=== PATIENT | male | born 1975 ===

== ENCOUNTER 2024-09-25 14:11 | Outpatient (CLI) | payer OTHER ==
[2024-09-26] MEDS ORDERED: METFORMIN HCL500 M3 PO (07:50)
[2024-09-26] MEDS ORDERED: [UNRECOGNIZED DRUG - OTHER] PO (07:50)
[2024-09-26] MEDS ORDERED: ZESTRIL2.5 MG PO (07:50)
[2024-09-26] MEDS ORDERED: JARDIANCE10 MG PO (07:50)
[2024-09-26] MEDS ORDERED: EZALLOR SPRINKL10 MG PO (07:51)
== END 2024-09-25 14:12 | disposition home or self-care (01) ==
LOC: RAD 14:11
PROVIDERS: ATTEND Surgery
DX: D12.5 Benign neoplasm of sigmoid colon (principal); D37.5 Neoplasm of uncertain behavior of rectum; R59.0 Localized enlarged lymph nodes

== ENCOUNTER 2024-09-26 07:24 | Inpatient (IN) | payer OTHER ==
[~2024-09-26] VITALS: Ht 61 cm; Wt 89.8 kg
[2024-09-26] MEDS ORDERED: JARDIANCE10 MG PO (07:50)
[2024-09-26] MEDS ORDERED: [UNRECOGNIZED DRUG - OTHER] PO (07:50)
[2024-09-26] MEDS ORDERED: METFORMIN HCL500 M3 PO (07:50)
[2024-09-26] MEDS ORDERED: ZESTRIL2.5 MG PO (07:50)
[2024-09-26] MEDS ORDERED: EZALLOR SPRINKL10 MG PO (07:51)
[2024-09-26 08:06] LABS: URINE APPEARANCE Clear; URINE BILIRRUBIN Negative (NEGATIVE); URINE BLOOD Negative; URINE COLOR Yellow; URINE KETONE Negative (NEGATIVE); URINE LEUKOCYTE Negative; URINE NITRATE Negative; URINE PROTEIN Negative (NEGATIVE); URINE UROBILINOGEN 0.2 E.U./dl
[2024-09-26 08:11] LABS: BASO % 0.8 % (0.1-1.2); EOS # 0.21 (0.04-0.54); EOS % 4.4 % (0.7-7.0); LYMPH # 1.91 (1.18-3.74); LYMPH % 39.8 % (19.3-53.1); MEAN PLATELET VOLUME 8.80 fl (9.4-12.4); MONO # 0.34 (0.24-0.82); MONO % 7.1 % (4.7-12.5); NEUT # 2.29 (1.56-6.13); NEUT % 47.7 % (34.0-71.1); RED CELL DISTRIBUTION WIDTH 13.4 % (11.6-14.4)
[2024-09-26 08:27] LABS: URINE BACTERIA 2.4 uL (0.0-1933); URINE CAST 0.00 uL (0.0-1.40); URINE EPITHELIAL CELLS 0.1 uL (0.0-38.8); URINE GLUCOSE >=1000 MG/DL (NEGATIVE); URINE RBC 0.5 uL (0.0-20.8); URINE WBC 1.2 uL (0.0-23.2)
[2024-09-26 08:39] LABS: INR 0.98
[2024-09-26 09:45] LABS: ALT/SGPT 25.0 U/L (12-78); AST/SGOT 15.0 U/L (15-37); BILIRUBIN TOTAL 0.63 mg/dL (0.3-1.2); BUN CREA RATIO 20.0 (7.0-25.0); CREATININE SERUM 0.93 mg/dL (0.70-1.30); GFR 86.0; GLOBULINA 2.9 G/DL (2.4-3.5); GLUCOSE FASTING 123.0 mg/dL (65-100); OSMOLALITY SERUM 289.0 MOSM/KG (275-295)
[2024-09-30 13:14] LABS: RH NEGATIVE
[2024-10-01] MEDS ORDERED: LIDOCAINE HCL 1%/EPINEPHRINE 20ML VIAL IJ ONE (08:30)
[2024-10-01] MEDS ORDERED: CEFTRIAXONE SODIUM 2,000 MG VIAL IV ONE (08:30)
[2024-10-01] MEDS ORDERED: POVIDONE-IODINE 118 ML BOTT TOP ONE (08:30)
[2024-10-01] MEDS ORDERED: BUPIVACAINE HCL 30 ML VIAL IJ ONE (08:30)
[2024-10-01] MEDS ORDERED: METRONIDAZOLE/SODIUM CHLORIDE 500 MG/100 ML PIGGYBACK IV ONE (08:30)
[2024-10-01] MEDS ORDERED: MORPHINE SULFATE 4 MG/ML VIAL IV ONE ×2 (09:40→10:10)
[2024-10-01] MEDS ORDERED: DEXTROSE 50 % IN WATER 0.5 G/ML VIAL IV PRN ×2 (10:15→13:15)
[2024-10-01] MEDS ORDERED: MORPHINE SULFATE 4 MG/ML CARTRIDGE IV PRN (10:15)
[2024-10-01] MEDS ORDERED: ONDANSETRON HCL 2 MG/ML VIAL IV PRN (10:15)
[2024-10-01] MEDS ORDERED: OxyCODONE HCL 5 MG TABLET (ROXICODONE) PO PRN (10:15)
[2024-10-01] MEDS ORDERED: RINGERS SOLUTION,LACTATED 1,000 ML IV SCH (10:15)
[2024-10-01 11:37] LABS: BASO % 0.4 % (0.1-1.2); EOS # 0.03 (0.04-0.54); EOS % 0.3 % (0.7-7.0); LYMPH # 0.72 (1.18-3.74); LYMPH % 7.3 % (19.3-53.1); MEAN PLATELET VOLUME 8.90 fl (9.4-12.4); MONO # 0.38 (0.24-0.82); MONO % 3.9 % (4.7-12.5); NEUT # 8.60 (1.56-6.13); NEUT % 87.7 % (34.0-71.1); RED CELL DISTRIBUTION WIDTH 12.8 % (11.6-14.4)
[2024-10-01 12:33] LABS: BUN CREA RATIO 11.0 (7.0-25.0); CREATININE SERUM 1.05 mg/dL (0.70-1.30); GFR 74.76; GLUCOSE FASTING 184.0 mg/dL (65-100); OSMOLALITY SERUM 284.0 MOSM/KG (275-295)
[2024-10-01] MEDS ORDERED: ENALAPRILAT DIHYDRATE 1.25 MG/ML VIAL IV PRN (13:15)
[2024-10-01] MEDS ORDERED: INSULIN LISPRO 1,000 UNIT/10 ML UNITS SUBCUTANEO PRN (13:15)
[2024-10-01] MEDS ORDERED: MAGNESIUM SULFATE IN WATER 50 ML IV NR (13:15)
[2024-10-01] MEDS ORDERED: ACETAMINOPHEN 500 MG GEL..CAP PO SCH (14:00)
[2024-10-01] MEDS ORDERED: GABAPENTIN 300 MG CAPSULE PO SCH (17:00)
[2024-10-01] MEDS ORDERED: POLYETHYLENE GLYCOL 3350 17 GM BLIST.PACK PO SCH (17:00)
[2024-10-01 19:04] VITALS: BP 115/72; O2SAT 95
[2024-10-01] MEDS ORDERED: FAMOTIDINE/PF 20 MG/2 ML VIAL IV PUSH SCH (21:00)
[2024-10-02 00:30] VITALS: BP 100/64; O2SAT 100
[2024-10-02 05:34] LABS: BASO % 0.3 % (0.1-1.2); EOS # 0.05 (0.04-0.54); EOS % 0.8 % (0.7-7.0); LYMPH # 1.59 (1.18-3.74); LYMPH % 23.9 % (19.3-53.1); MEAN PLATELET VOLUME 8.90 fl (9.4-12.4); MONO # 0.53 (0.24-0.82); MONO % 8.0 % (4.7-12.5); NEUT # 4.45 (1.56-6.13); NEUT % 66.8 % (34.0-71.1); RED CELL DISTRIBUTION WIDTH 13.1 % (11.6-14.4)
[2024-10-02 05:50] LABS: BUN CREA RATIO 11.0 (7.0-25.0); CREATININE SERUM 0.85 mg/dL (0.70-1.30); GFR 95.41; GLUCOSE FASTING 117.0 mg/dL (65-100); OSMOLALITY SERUM 281.0 MOSM/KG (275-295)
[2024-10-02] MEDS ORDERED: LISINOPRIL 2.5 MG TABLET PO SCH (09:00)
[2024-10-02 09:33] VITALS: BP 108/68; O2SAT 96
[2024-10-02] MEDS ORDERED: SIMETHICONE 125 MG CAPSULE PO STA (13:19)
[2024-10-02] MEDS ORDERED: HYOSCYAMINE SULFATE 0.125 MG TAB.SUBL SL PRN (13:30)
[2024-10-02 16:00] VITALS: BP 110/67; O2SAT 96
[2024-10-02] MEDS ORDERED: ENOXAPARIN SODIUM 40 MG/0.4 ML SYRINGE SUBCUTANEO SCH (17:00)
[2024-10-03 00:32] VITALS: BP 113/65; O2SAT 95
[2024-10-03 06:50] LABS: BASO % 0.4 % (0.1-1.2); EOS # 0.17 (0.04-0.54); EOS % 2.5 % (0.7-7.0); LYMPH # 1.73 (1.18-3.74); LYMPH % 25.7 % (19.3-53.1); MEAN PLATELET VOLUME 9.00 fl (9.4-12.4); MONO # 0.51 (0.24-0.82); MONO % 7.6 % (4.7-12.5); NEUT # 4.29 (1.56-6.13); NEUT % 63.7 % (34.0-71.1); RED CELL DISTRIBUTION WIDTH 13.2 % (11.6-14.4)
[2024-10-03 07:44] LABS: BUN CREA RATIO 10.0 (7.0-25.0); CREATININE SERUM 0.91 mg/dL (0.70-1.30); GFR 88.19; GLUCOSE FASTING 110.0 mg/dL (65-100); OSMOLALITY SERUM 284.0 MOSM/KG (275-295)
[2024-10-03 08:53] VITALS: BP 123/80; O2SAT 96
[2024-10-03] MEDS ORDERED: ENOXAPARIN SODIUM 40 MG/0.4 ML SYRINGE SUBCUTANEO SCH (09:00)
[2024-10-03 16:13] VITALS: BP 129/83; O2SAT 98
[2024-10-04 01:27] VITALS: BP 110/71; O2SAT 97
[2024-10-04 17:18] VITALS: BP 115/75; O2SAT 95
[2024-10-04] MEDS ORDERED: INTESTINEX680 M1 PO (18:16)
[2024-10-04] MEDS ORDERED: HYOSCYAMINE0.125 M1 SL (18:17)
== END 2024-10-04 20:31 | disposition home or self-care (01) | DRG 331 ==
LOC: EDUNIT# 10:30 → O/R 10-01 09:52 → SURH 10-01 09:52
PROVIDERS: Internal Medicine Geriatric Medicine; ADMIT Surgery; ATTEND Surgery
PROC: 0DBP4ZZ Excision of Rectum, Percutaneous Endoscopic Approach (ICD-10-PCS; 2024-10-01)
PROC: 07BC4ZZ Excision of Pelvis Lymphatic, Percutaneous Endoscopic Approach (ICD-10-PCS; 2024-10-01)
PROC: 0DJD8ZZ Inspection of Lower Intestinal Tract, Via Natural or Artificial Opening Endoscopic (ICD-10-PCS; 2024-10-01)
PROC: 0DTN4ZZ Resection of Sigmoid Colon, Percutaneous Endoscopic Approach (ICD-10-PCS; principal; 2024-10-01 14:15)
DX: C18.7 Malignant neoplasm of sigmoid colon (principal); R59.0 Localized enlarged lymph nodes

== ENCOUNTER 2024-09-26 07:29 | Outpatient (CLI) | payer OTHER ==
[2024-09-26] MEDS ORDERED: ZESTRIL2.5 MG PO (07:50)
[2024-09-26] MEDS ORDERED: METFORMIN HCL500 M3 PO (07:50)
[2024-09-26] MEDS ORDERED: JARDIANCE10 MG PO (07:50)
[2024-09-26] MEDS ORDERED: [UNRECOGNIZED DRUG - OTHER] PO (07:50)
[2024-09-26] MEDS ORDERED: EZALLOR SPRINKL10 MG PO (07:51)
== END 2024-09-26 07:30 | disposition home or self-care (01) ==
LOC: TOM 07:29
PROVIDERS: ATTEND Surgery
DX: D12.5 Benign neoplasm of sigmoid colon (principal); D37.5 Neoplasm of uncertain behavior of rectum; R59.0 Localized enlarged lymph nodes; C18.5 Malignant neoplasm of splenic flexure